=== PATIENT | female | born 1980 | race Caucasian/White ===

== ENCOUNTER 2017-06-09 09:17 | Inpatient (IN) | payer BC ==
--- NOTE | 2017-06-09 09:37 | C.PDOC ---
History Of Present Illness 37 y/o female presents to ED sent by Dr. Kinsey for pre-op labs and admission. Patient is schedules for operative wash out today for possible ulcer developed in September. Patient denies fever, chills, nausea, weakness or any other complaints at this time. Time Seen by Provider: 06/09/17 09:36 Chief Complaint (Nursing): Lower Extremity Problem/Injury History Per: Patient History/Exam Limitations: no limitations Onset/Duration Of Symptoms: Days Current Symptoms Are (Timing): Still Present Past Medical History Reviewed: Historical Data, Nursing Documentation, Vital Signs Vital Signs: Last Vital Signs Temp 98.6 F 06/09/17 13:54 Pulse 61 06/09/17 13:54 Resp 20 06/09/17 13:54 BP 112/76 06/09/17 13:54 Pulse Ox 100 06/09/17 13:54 Surgical History: No Surg Hx Family History: States: No Known Family Hx - Social History Hx Alcohol Use: No Hx Substance Use: No - Immunization History Hx Tetanus Toxoid Vaccination: No Hx Influenza Vaccination: No Hx Pneumococcal Vaccination: No Review Of Systems Constitutional: Negative for: Fever, Chills Skin: Positive for: Rash, Other (Ulcer to right leg). Negative for: Bruising Neurological: Negative for: Weakness, Numbness Physical Exam - Physical Exam Appears: Non-toxic, No Acute Distress Skin: Warm, Dry, Other (hyperpigmented macular rash diffusely to chest, back and legs. Non blanching, non tender. Anular distinct Lesions) Head: Normacephalic Oral Mucosa: Moist Neck: Normal ROM, Supple Chest: Symmetrical Cardiovascular: Rhythm Regular Respiratory: Normal Breath Sounds, No Rales, No Rhonchi, No Wheezing Gastrointestinal/Abdominal: Soft, No Tenderness, No Guarding, No Rebound Extremity: Capillary Refill (<2 seconds), No Deformity, Other (Superficial venous stasis Ulcer to medial aspect of right lower extremity. Non tender, No flunctuance) Pulses: Left Dorsalis Pedis: Normal, Right Dorsalis Pedis: Normal Neurological/Psych: Oriented x3, Normal Motor, Normal Sensation ED Course And Treatment - Laboratory Results Result Diagrams: 06/09/17 10:09 06/09/17 10:09 ECG: Interpreted By Me ECG Rhythm: Sinus Rhythm ECG Interpretation: Normal, No Acute Changes Interpretation Of ECG: nsr,rate 60bpm,intervals wnl,no ectopy,no acute st changes O2 Sat by Pulse Oximetry: 98 (RA) Pulse Ox Interpretation: Normal Medical Decision Making Medical Decision Making: Plan:blood work, UA, ECG, Doppler Progress: Discussed with Dr. Kinsey for further plan Dr. Solis contacted Venous Duplex- Negative No findings Disposition - Disposition Disposition: HOSPITALIZED Disposition Time: 14:34 Condition: GOOD - Clinical Impression Clinical Impression: Stasis leg ulcer - Scribe Statement The provider has reviewed the documentation as recorded by the Scribsara Johnson All medical record entries made by the Bereibe were at my direction and personally dictated by me. I have reviewed the chart and agree that the record accurately reflects my personal performance of the history, physical exam, medical decision making, and the department course for this patient. I have also personally directed, reviewed, and agree with the discharge instructions and disposition. Decision To Admit - InPatient: Physician Admission Certification: I certify that this patient requires 2 or more midnights of care for the following reason:: infected leg ulcers - . Bed Request Type: Regular Admitting Physician: Frank Kinsey Patient Diagnosis: Stasis leg ulcer
[2017-06-09] MEDS ORDERED: Sodium Chloride 0.9% 1,000 ML IV ONE ×2 (09:51→19:30)
[2017-06-09 10:12] LABS: BASO # 0.1 K/uL (0.0-0.2); BASO % 1.2 % (0.0-2.0); EOS # 0.2 K/uL (0.0-0.7); EOS % 2.4 % (0.0-4.0); HEMATOCRIT 37.7 % (34.0-47.0); LYMPH # 1.3 K/uL (1.0-4.3); LYMPH % 20.3 % (20.0-40.0); MEAN CELL VOLUME 84.1 fL (81.0-99.0); MEAN CORPUSCULAR HEMOGLOBIN 28.9 pg (27.0-31.0); MEAN CORPUSCULAR HGB CONC 34.3 g/dL (33.0-37.0); MEAN PLATELET VOLUME 9.3 fL (7.2-11.7); MONO # 0.6 K/uL (0.0-0.8); MONO % 9.3 % (0.0-10.0); NRBC % 0.1 % (0.0-2.0); RED CELL DISTRIBUTION WIDTH 12.5 % (11.5-14.5); WHITE BLOOD COUNT 6.6 K/uL (4.8-10.8)
[2017-06-09] MEDS ORDERED: ceFAZolin 1 gm FROZEN Premix 1 GM/50 ML ML IVPB ONE (10:15)
[2017-06-09] MEDS ORDERED: Sodium Chloride 0.9% 1,000 ML ONE (10:15)
[2017-06-09 10:24] LABS: CHLORIDE 100 mmol/L (98-107)
[2017-06-09 10:25] LABS: POTASSIUM 3.8 mmol/L (3.6-5.2); SODIUM 135 mmol/L (132-148)
[2017-06-09 10:28] LABS: ALB/GLOB RATIO 1.2 (1.0-2.1); ALKALINE PHOSPHATASE 59 U/L (38-126); ALT/SGPT 18 U/L (9-52); AST/SGOT 16 U/L (14-36); BILIRUBIN,TOTAL 0.7 mg/dL (0.2-1.3); BLOOD UREA NITROGEN 10 mg/dL (7-17); CALCIUM 7.9 mg/dl (8.6-10.4); CARBON DIOXIDE 24 mmol/L (22-30); GFR AFRICAN-AMERICAN > 60; GLUCOSE,RANDOM 74 mg/dL (65-105); TOTAL PROTEIN 7.5 g/dL (6.3-8.3)
[2017-06-09 10:42] LABS: RBC URINE 3 /hpf (0-3); URINE BILIRUBIN NEGATIVE (NEGATIVE); URINE BLOOD NEGATIVE (NEGATIVE); URINE COLOR Yellow (YELLOW); URINE GLUCOSE (UA) NORMAL (Normal); URINE KETONE NEGATIVE (NEGATIVE); URINE LEUKOCYTE ESTERASE NEG Leu/uL (Negative); URINE PROTEIN NEGATIVE (NEGATIVE); URINE UROBILINOGEN NORMAL mg/dL (0.2-1.0); WBC URINE 1 /hpf (0-5)
[2017-06-09] MEDS ORDERED: Lactated Ringer's 1,000 ML IV ONE (15:35)
[2017-06-09] MEDS ORDERED: Midazolam 2 MG/2 ML VIAL ONE (15:40)
[2017-06-09] MEDS ORDERED: Propofol 10 mg/ml Inj (20 ML) ONE (15:41)
[2017-06-09] MEDS ORDERED: ceFAZolin IV 1 gm in Dextrose 1 GM/50 ML BAG IVPB ONE (15:47)
[2017-06-09] MEDS ORDERED: Bupivacaine HCl 0.25% PF (10 ml) Inj ONE (15:48)
[2017-06-09] MEDS ORDERED: Bacitracin Ointment 30 GM TUBE ONE (15:58)
[2017-06-09] MEDS ORDERED: Oxycodone/Acetaminophen 5/325 mg Tab PO PRN (16:20)
--- NOTE | 2017-06-09 17:16 | CP.PCM.CON ---
History of Present Illness - History of Present Illness History of Present Illness: 37 y/o female presents to ED sent by Dr. Kinsey for pre-op labs and admission. Patient is schedules for operative wash out today for possible ulcer developed in September. Review of Systems - Review of Systems All systems: reviewed and no additional remarkable complaints except - Constitutional Constitutional: absent: As Per HPI, Anorexia, Chills, Daytime Sleepiness, Excessive Sweating, Fatigue, Fever, Frequent Falls, Headache, Increased Appetite , Lethargy, Malaise, Night Sweats, Snoring, Sleep Apnea, Weight Gain, Weight Loss, Weakness, Other - EENT Eyes: absent: As Per HPI, Blind Spots, Blurred Vision, Change in Vision, Decreased Night Vision, Diplopia, Discharge, Dry Eye, Exophthalmos, Floaters, Irritation, Itchy Eyes, Loss of Peripheral Vision, Pain, Photophobia, Requires Corrective Lenses, Sees Flashes, Spots in Vision, Tunnel Vision, Other Visual Disturbances, Loss of Vision, Other Nose/Mouth/Throat: absent: As Per HPI, Epistaxis, Nasal Congestion, Nasal Discharge, Nasal Obstruction, Nasal Trauma, Nose Pain, Post Nasal Drip, Sinus Pain, Sinus Pressure, Bleeding Gums, Change in Voice, Dental Pain, Dry Mouth, Dysphagia, Halitosis, Hoarsness, Lip Swelling, Mouth Lesions, Mouth Pain, Odynophagia, Sore Throat, Throat Swelling, Tongue Swelling, Facial Pain, Neck Pain, Neck Mass, Other - Breasts Breasts: absent: As Per HPI, Change in Shape, Mass, Pain, Nipple Discharge, Nipple Inversion, Skin Changes, Swelling, Other - Cardiovascular Cardiovascular: absent: As Per HPI, Acrocyanosis, Chest Pain, Chest Pain at Rest , Chest Pain with Activity, Claudication, Diaphoresis, Dyspnea, Dyspnea on Exertion, Edema, Irregular Heart Rhythm, Pain Radiating to Arm/Neck/Jaw, Leg Edema, Leg Ulcers, Lightheadedness, Orthopnea, Palpitations, Paroxysmal Nocturnal Dyspnea, Pedal Edema, Radiating Pain, Rapid Heart Rate, Slow Heart Rate, Syncope, Other - Respiratory Respiratory: absent: As Per HPI, Cough, Dyspnea, Hemoptysis, Dyspnea on Exertion , Wheezing, Snoring, Stridor, Pain on Inspiration, Chest Congestion, Excessive Mucous Production, Change in Mucous Color, Pain with Coughing, Other - Gastrointestinal Gastrointestinal: absent: As Per HPI, Abdominal Pain, Belching, Bloating, Change in Bowel Habits, Change in Stool Character, Coffee Ground Emesis, Constipation, Cramping, Diarrhea, Dyspepsia, Dysphagia, Early Satiety, Excessive Flatus, Fecal Incontinence, Heartburn, Hematemesis, Hematochezia, Loose Stools, Melena, Nausea, Odynophagia, Temesmus, Vomiting, Other - Genitourinary Genitourinary: absent: As Per HPI, Change in Urinary Stream, Difficulty Urinating, Dysuria, Flank Pain, Hematuria, Pyuria, Nocturia, Urinary Incontinence, Urinary Frequency, Urinary Hesitance, Urinary Urgency, Voiding Freq/Small Amts, Freq UTI, Hx Renal/Bladder Calculi, Hx /Renal Surgery, Bladder Distension, Other - Reproductive: Female Reproductive:Female: absent: As Per HPI, Amenorrhea, Amenorrhea/ Control, Currently Menstual, Cycle <21 Days, Cycle >35 Days, Cycle Variable, Menses 1-7 Days, Menses >/= 8 Days, Menses Variable, Cycle > 4 Weeks Between, No Menses for 6 Months, Heavy Menses, Light Menses, Normal Menses, Spotting Between Cycles , S/P Hysterectomy, Menopausal, Post Menopausal, Premenarche, Abnormal Vaginal Bleeding, Dysmenorrhea, Dyspareunia, Genital Lesions, Genital Pruritis, Pelvic Pain, Prolapse Symptoms, Sexual Dysfunction, Vaginal Discharge, Vaginal Dryness , Vaginal Odor, Vaginal Pruritis, Other - Menstruation Menstruation: absent: As Per HPI, Amenorrhea, Amenorrhea/ Control, Currently Menstual, Cycle <21 Days, Cycle >35 Days, Cycle Variable, Menses 1-7 Days, Menses >/= 8 Days, Menses Variable, Cycle > 4 Weeks Between, No Menses for 6 Months, Heavy Menses, Light Menses, Normal Menses, Spotting Between Cycles , S/P Hysterectomy, Menopausal, Post Menopausal, Premenarche, Abnormal Vaginal Bleeding, Dysmenorrhea, Other - Musculoskeletal Musculoskeletal: As Per HPI - Integumentary Integumentary: As Per HPI, Dry Skin, Skin Pain, Wounds - Neurological Neurological: absent: As Per HPI, Abnormal Gait, Abnormal Hearing, Abnormal Movements, Abnormal Speech, Behavioral Changes, Burning Sensations, Confusion, Convulsions, Disequilibrium, Dizziness, Numbness, Focal Weakness, Frequent Falls , Headaches, Lack of Coordination, Loss of Vision, Memory Loss, Paresthesias, Radicular Pain, Restless Legs, Sensory Deficit, Syncope, Tingling, Tremor, Vertigo, Weakness, Other Visual Disturbances, Other - Psychiatric Psychiatric: absent: As Per HPI, Abnormal Sleep Pattern, Anhedonia, Anxiety, Auditory Hallucinations, Behavioral Changes, Change in Appetite, Change in Libido, Confusion, Depression, Difficulty Concentrating, Hallucinations, Homicidal Ideation, Hopelessness, Irritability, Memory Loss, Mood Swings, Panic Attacks, Paranoia, Suicidal Ideation, Visual Hallucinations, Tactile Hallucinations, Other Past Patient History - Past Social History Smoking Status: Never Smoked - PSYCHIATRIC Hx Substance Use: No - SURGICAL HISTORY Hx Surgeries: No - ANESTHESIA Hx Anesthesia: No Meds Allergies/Adverse Reactions: Allergies Allergy/AdvReac Type Severity Reaction Status Date / Time omeprazole Allergy Severe RASH Verified 06/09/17 09:51 - Medications Medications: Current Medications Docusate Sodium (Colace) 100 mg PO BID [facility] Enoxaparin Sodium (Lovenox) 30 mg SC 1000,2200 [facility] Sodium Chloride (Sodium Chloride 0.9%) 1,000 mls @ 100 mls/hr IV .Q10H ONE Stop: 06/09/17 19:50 Last Admin: 06/09/17 10:18 Dose: 100 mls/hr Cefazolin Sodium/Dextrose (Ancef Iv 1 Gm Duplex) 1 gm in 50 mls @ 100 mls/hr IVPB Q8H [facility] Morphine Sulfate (Morphine) 1 mg IVP Q10M PRN PRN Reason: Pain, severe (8-10) Stop: 06/09/17 18:20 Ondansetron HCl (Zofran Inj) 4 mg IVP Q6 PRN PRN Reason: Nausea/Vomiting Oxycodone/Acetaminophen (Percocet 5/325 Mg Tab) 1 tab PO Q4H PRN PRN Reason: pain Stop: 06/12/17 16:21 Physical Exam - Constitutional Appears: Non-toxic, Chronically Ill - Head Exam Head Exam: NORMOCEPHALIC - Eye Exam Eye Exam: PERRL - ENT Exam ENT Exam: Mucous Membranes Dry - Neck Exam Neck exam: Negative for: Lymphadenopathy - Respiratory Exam Respiratory Exam: Decreased Breath Sounds - Cardiovascular Exam Cardiovascular Exam: REGULAR RHYTHM - GI/Abdominal Exam GI & Abdominal Exam: Diminished Bowel Sounds, Soft. absent: Tenderness - Rectal Exam Rectal Exam: Deferred - Exam Exam: NORMAL INSPECTION - Extremities Exam Extremities exam: Positive for: tenderness, pedal pulses present. Negative for : pedal edema - Back Exam Back exam: absent: CVA tenderness (L), CVA tenderness (R) - Neurological Exam Neurological exam: Alert, CN II-XII Intact, Oriented x3, Reflexes Normal - Psychiatric Exam Psychiatric exam: Normal Mood - Skin Skin Exam: Dry Results - Vital Signs Recent Vital Signs: Last Vital Signs Temp 98.2 F 06/09/17 15:03 Pulse 81 06/09/17 16:45 Resp 13 06/09/17 16:45 BP 120/80 06/09/17 16:45 Pulse Ox 100 06/09/17 16:45 - Labs Result Diagrams: 06/09/17 10:09 06/09/17 10:09 Labs: Laboratory Results - last 24 hr 06/09/17 06/09/17 06/09/17 10:09 10:09 10:09 WBC 6.6 RBC 4.49 Hgb 12.9 Hct 37.7 MCV 84.1 MCH 28.9 MCHC 34.3 RDW 12.5 Plt Count 236 MPV 9.3 Neut % (Auto) 66.8 Lymph % (Auto) 20.3 [place] % (Auto) 9.3 Eos % (Auto) 2.4 Baso % (Auto) 1.2 Neut # 4.4 Lymph # 1.3 [place] # 0.6 Eos # 0.2 Baso # 0.1 PT 11.1 INR 1.0 APTT 33 Sodium 135 Potassium 3.8 Chloride 100 Carbon Dioxide 24 Anion Gap 15 BUN 10 Creatinine 0.5 L Est GFR ( Amer) > 60 Est GFR (Non-Af Amer) > 60 Random Glucose 74 Calcium 7.9 L Total Bilirubin 0.7 AST 16 ALT 18 Alkaline Phosphatase 59 Total Protein 7.5 Albumin 4.1 Globulin 3.3 Albumin/Globulin Ratio 1.2 Urine Color Urine Clarity Urine pH Ur Specific [place] Urine Protein Urine Glucose (UA) Urine Ketones Urine Blood Urine Nitrate Urine Bilirubin Urine Urobilinogen Ur Leukocyte Esterase Urine WBC (Auto) Urine RBC (Auto) Ur Squamous Epith Cells Urine HCG, Qual 06/09/17 10:23 WBC RBC Hgb Hct MCV MCH MCHC RDW Plt Count MPV Neut % (Auto) Lymph % (Auto) [place] % (Auto) Eos % (Auto) Baso % (Auto) Neut # Lymph # [place] # Eos # Baso # PT INR APTT Sodium Potassium Chloride Carbon Dioxide Anion Gap BUN Creatinine Est GFR ( Amer) Est GFR (Non-Af Amer) Random Glucose Calcium Total Bilirubin AST ALT Alkaline Phosphatase Total Protein Albumin Globulin Albumin/Globulin Ratio Urine Color Yellow Urine Clarity Clear Urine pH 5.0 Ur Specific [place] 1.023 Urine Protein Negative Urine Glucose (UA) Normal Urine Ketones Negative Urine Blood Negative Urine Nitrate Negative Urine Bilirubin Negative Urine Urobilinogen Normal Ur Leukocyte Esterase Neg Urine WBC (Auto) 1 Urine RBC (Auto) 3 Ur Squamous Epith Cells 7 H Urine HCG, Qual Negative Assessment & Plan (1) Stasis leg ulcer Status: Acute - Assessment and Plan (Free Text) Assessment: cont iv ancef for or
[2017-06-09] MEDS: Enoxaparin 30 mg Syringe SC SCH (22:30)
[2017-06-09] MEDS: ceFAZolin IV 1 gm in Dextrose 1 GM/50 ML BAG IVPB SCH (23:07)
--- NOTE | 2017-06-09 23:27 | CP.PCM.HP ---
History of Present Illness - History of Present Illness History of Present Illness: History Of Present Illness CC: Left Lower Extremity Problem/Injury/ulcer 37 y/o female with no h/o DM, HTn N presents to ED with non healing ulcers and is for surgical debribement sent by Dr. Kinsey for pre-op labs and admission. Patient is schedules for operative wash out today for possible ulcer developed in September. Patient denies fever, chills, nausea, weakness or any other complaints at this time.Pt is eating in her bed, family at bedside, denies any pain, discomfort Physical Exam - Physical Exam Appears: Non-toxic, No Acute Distress Skin: Warm, Dry, pale, Other (hyperpigmented macular purplish rash diffusely to chest, back and legs. Non blanching, non tender. Anular distinct Lesions) Head: Normacephalic Oral Mucosa: Moist Neck: Normal ROM, Supple, no JVD Chest: Symmetrical Cardiovascular: Rhythm Regular Respiratory: Normal Breath Sounds, No Rales, No Rhonchi, No Wheezing Gastrointestinal/Abdominal: Soft, No Tenderness, No Guarding, No Rebound Extremity: Capillary Refill (<2 seconds), No Deformity, Other (Superficial venous stasis Ulcer to medial aspect of right lower extremity. Non tender, No flunctuance) Pulses: Left Dorsalis Pedis: Normal, Right Dorsalis Pedis: Normal Neurological/Psych: Oriented x3, Normal Motor, Normal Sensation Past Patient History - Past Social History Smoking Status: Never Smoked - PSYCHIATRIC Hx Substance Use: No - SURGICAL HISTORY Hx Surgeries: No - ANESTHESIA Hx Anesthesia: No Meds Allergies/Adverse Reactions: Allergies Allergy/AdvReac Type Severity Reaction Status Date / Time omeprazole Allergy Severe RASH Verified 06/09/17 09:51 Physical Exam - Constitutional Appears: No Acute Distress - Head Exam Head Exam: ATRAUMATIC, NORMAL INSPECTION, NORMOCEPHALIC - Eye Exam Eye Exam: EOMI, Normal appearance, PERRL Pupil Exam: NORMAL ACCOMODATION, PERRL - Cardiovascular Exam Cardiovascular Exam: REGULAR RHYTHM - GI/Abdominal Exam GI & Abdominal Exam: Normal Bowel Sounds, Soft. absent: Tenderness Results - Vital Signs Recent Vital Signs: Last Vital Signs Temp 98.3 F 06/09/17 21:33 Pulse 68 06/09/17 21:33 Resp 20 06/09/17 21:33 BP 95/67 L 06/09/17 21:33 Pulse Ox 99 06/09/17 21:33 - Labs Result Diagrams: 06/09/17 10:09 06/09/17 10:09 Labs: Laboratory Results - last 24 hr 06/09/17 06/09/17 06/09/17 10:09 10:09 10:09 WBC 6.6 RBC 4.49 Hgb 12.9 Hct 37.7 MCV 84.1 MCH 28.9 MCHC 34.3 RDW 12.5 Plt Count 236 MPV 9.3 Neut % (Auto) 66.8 Lymph % (Auto) 20.3 [place] % (Auto) 9.3 Eos % (Auto) 2.4 Baso % (Auto) 1.2 Neut # 4.4 Lymph # 1.3 [place] # 0.6 Eos # 0.2 Baso # 0.1 PT 11.1 INR 1.0 APTT 33 Sodium 135 Potassium 3.8 Chloride 100 Carbon Dioxide 24 Anion Gap 15 BUN 10 Creatinine 0.5 L Est GFR ( Amer) > 60 Est GFR (Non-Af Amer) > 60 Random Glucose 74 Calcium 7.9 L Total Bilirubin 0.7 AST 16 ALT 18 Alkaline Phosphatase 59 Total Protein 7.5 Albumin 4.1 Globulin 3.3 Albumin/Globulin Ratio 1.2 Urine Color Urine Clarity Urine pH Ur Specific [place] Urine Protein Urine Glucose (UA) Urine Ketones Urine Blood Urine Nitrate Urine Bilirubin Urine Urobilinogen Ur Leukocyte Esterase Urine WBC (Auto) Urine RBC (Auto) Ur Squamous Epith Cells Urine HCG, Qual 06/09/17 10:23 WBC RBC Hgb Hct MCV MCH MCHC RDW Plt Count MPV Neut % (Auto) Lymph % (Auto) [place] % (Auto) Eos % (Auto) Baso % (Auto) Neut # Lymph # [place] # Eos # Baso # PT INR APTT Sodium Potassium Chloride Carbon Dioxide Anion Gap BUN Creatinine Est GFR ( Amer) Est GFR (Non-Af Amer) Random Glucose Calcium Total Bilirubin AST ALT Alkaline Phosphatase Total Protein Albumin Globulin Albumin/Globulin Ratio Urine Color Yellow Urine Clarity Clear Urine pH 5.0 Ur Specific [place] 1.023 Urine Protein Negative Urine Glucose (UA) Normal Urine Ketones Negative Urine Blood Negative Urine Nitrate Negative Urine Bilirubin Negative Urine Urobilinogen Normal Ur Leukocyte Esterase Neg Urine WBC (Auto) 1 Urine RBC (Auto) 3 Ur Squamous Epith Cells 7 H Urine HCG, Qual Negative Assessment & Plan (1) Stasis leg ulcer Assessment and Plan: continue post op care ID follow up Status: Acute (2) Animal bite wound Status: Acute
[2017-06-10] MEDS: ceFAZolin IV 1 gm in Dextrose 1 GM/50 ML BAG IVPB SCH ×3 (02:34→18:14)
--- NOTE | 2017-06-10 08:34 | OP ---
PROCEDURE DATE: 06/09/2017 PREOPERATIVE DIAGNOSIS: Extensive right ankle abscess with cellulitis. POSTOPERATIVE DIAGNOSIS: Extensive right ankle abscess with cellulitis. PROCEDURES PERFORMED: 1. Excision and drainage of right ankle abscess (17099). 2. Repair of perforating vein (49281). 3. Partial with adjacent tissue transfer closure of 10 cm2 (81995). SURGEON: Frank Kinsey MD TYPE OF ANESTHESIA: General. ESTIMATED BLOOD LOSS: 50 mL. POSTOPERATIVE CONDITION: Stable. INDICATION FOR SURGERY: This is a 37-year-old female with a longstanding infection in her right ankle secondary to venostasis disease, skin changes, and infection. She was seen in my office yesterday, found to have an abscess in the ankle and was admitted to the emergency room today for urgent drainage and debridement. DESCRIPTION OF PROCEDURE: The patient was taken to the operating room, general anesthesia was administered and the right leg and foot were prepped and draped. An incision was made into the ankle abscess and pus was drained and cultured. It was then extensively debrided. A bleeding and perforated vein was noted and after gaining control of it, it was repaired with a 7-0 Prolene suture. After this control of the bleeding, the wound was pulse irrigated with copious amounts of saline solution. A partial tissue transfer closure was performed at the periphery by widely mobilizing and using advancement flap method for approximately 10 cm2 and the rest of the wound was packed open with wet saline gauze. The patient tolerated the procedure well and returned to the recovery room in stable condition. Frank Kinsey MD
[2017-06-10] MEDS: Enoxaparin 30 mg Syringe SC SCH ×3 (09:22→22:29)
--- NOTE | 2017-06-10 18:21 | CARD ---
APPROVED REPORT EKG Measurement Heart [id number] <Conclusion> Normal sinus rhythm Low voltage QRS Borderline ECG
--- NOTE | 2017-06-10 19:15 | CP.PCM.PN ---
Subjective - Date & Time of Evaluation Date of Evaluation: 06/10/17 Time of Evaluation: 10:00 - Subjective Subjective: no fever alert awake Objective - Vital Signs/Intake and Output Vital Signs (last 24 hours): Temp Pulse Resp BP Pulse Ox 97.6 F 63 20 107/71 96 06/10/17 16:00 06/10/17 16:00 06/10/17 16:00 06/10/17 16:00 06/10/17 16:00 Intake and Output: 06/10/17 06/11/17 18:59 06:59 Intake Total 260 Balance 260 - Medications Medications: Current Medications Docusate Sodium (Colace) 100 mg PO BID [facility] Last Admin: 06/10/17 17:36 Dose: 100 mg Enoxaparin Sodium (Lovenox) 30 mg SC 1000,2200 [facility] Last Admin: 06/10/17 11:31 Dose: 30 mg Cefazolin Sodium/Dextrose (Ancef Iv 1 Gm Duplex) 1 gm in 50 mls @ 100 mls/hr IVPB Q8H [facility] Last Admin: 06/10/17 18:14 Dose: 100 mls/hr Ondansetron HCl (Zofran Inj) 4 mg IVP Q6 PRN PRN Reason: Nausea/Vomiting Oxycodone/Acetaminophen (Percocet 5/325 Mg Tab) 1 tab PO Q4H PRN PRN Reason: pain Stop: 06/12/17 16:21 - Labs Labs: 06/09/17 10:09 06/09/17 10:09 PT 11.1 SECONDS (9.7-12.2) 06/09/17 10:09 INR 1.0 06/09/17 10:09 APTT 33 SECONDS (21-34) 06/09/17 10:09 - Constitutional Appears: Non-toxic, Chronically Ill - Head Exam Head Exam: NORMOCEPHALIC - Eye Exam Eye Exam: PERRL - ENT Exam ENT Exam: Mucous Membranes Dry - Neck Exam Neck Exam: absent: Lymphadenopathy - Respiratory Exam Respiratory Exam: Decreased Breath Sounds - Cardiovascular Exam Cardiovascular Exam: REGULAR RHYTHM - GI/Abdominal Exam GI & Abdominal Exam: Distended, Soft - Rectal Exam Rectal Exam: Deferred - Exam Exam: NORMAL INSPECTION - Extremities Exam Extremities Exam: absent: Pedal Edema - Back Exam Back Exam: absent: CVA tenderness (L), CVA tenderness (R) - Neurological Exam Neurological Exam: Alert, Awake, Oriented x3 - Psychiatric Exam Psychiatric exam: Normal Mood - Skin Skin Exam: Dry Assessment and Plan (1) Stasis leg ulcer Status: Acute - Assessment and Plan (Free Text) Plan: for i and d in am
--- NOTE | 2017-06-10 23:32 | CP.PCM.CON ---
History of Present Illness - History of Present Illness History of Present Illness: CC: Left Lower Extremity Problem/Injury/ulcer HPI: 37 y/o [place] female with no h/o DM, HTn N presents to ED with non healing ulcers and is for surgical debribement sent by Dr. Kinsey for pre-op labs and admission. Patient is schedules for operative wash out today for possible ulcer developed in September. Patient denies fever, chills, nausea, weakness or any other complaints at this time.Pt is eating in her bed, family at bedside, denies any pain, discomfort Physical Exam - Physical Exam Appears: Non-toxic, No Acute Distress Skin: Warm, Dry, pale, Other (hyperpigmented macular purplish rash diffusely to chest, back and legs. Non blanching, non tender. Anular distinct Lesions) Head: Normacephalic Oral Mucosa: Moist Neck: Normal ROM, Supple, no JVD Chest: Symmetrical Cardiovascular: Rhythm Regular Respiratory: Normal Breath Sounds, No Rales, No Rhonchi, No Wheezing Gastrointestinal/Abdominal: Soft, No Tenderness, No Guarding, No Rebound Extremity: Capillary Refill (<2 seconds), No Deformity, Other (Superficial venous stasis Ulcer to medial aspect of right lower extremity. Non tender, No flunctuance) Pulses: Left Dorsalis Pedis: Normal, Right Dorsalis Pedis: Normal Neurological/Psych: Oriented x3, Normal Motor, Normal Sensation Past Patient History - Past Medical History & Family History Past Medical History?: No - Past Social History Smoking Status: Never Smoked - MUSCULOSKELETAL/RHEUMATOLOGICAL Hx Falls: No - PSYCHIATRIC Hx Substance Use: No - SURGICAL HISTORY Hx Surgeries: No - ANESTHESIA Hx Anesthesia: No Meds Allergies/Adverse Reactions: Allergies Allergy/AdvReac Type Severity Reaction Status Date / Time omeprazole Allergy Severe RASH Verified 06/09/17 09:51 - Medications Medications: Current Medications Docusate Sodium (Colace) 100 mg PO BID [facility] Last Admin: 06/10/17 17:36 Dose: 100 mg Enoxaparin Sodium (Lovenox) 30 mg SC 1000,2200 [facility] Last Admin: 06/10/17 22:29 Dose: 30 mg Cefazolin Sodium/Dextrose (Ancef Iv 1 Gm Duplex) 1 gm in 50 mls @ 100 mls/hr IVPB Q8H [facility] Last Admin: 06/10/17 18:14 Dose: 100 mls/hr Ondansetron HCl (Zofran Inj) 4 mg IVP Q6 PRN PRN Reason: Nausea/Vomiting Oxycodone/Acetaminophen (Percocet 5/325 Mg Tab) 1 tab PO Q4H PRN PRN Reason: pain Stop: 06/12/17 16:21 Physical Exam - Constitutional Appears: Well, No Acute Distress Results - Vital Signs Recent Vital Signs: Last Vital Signs Temp 97.6 F 06/10/17 16:00 Pulse 63 06/10/17 16:00 Resp 20 06/10/17 16:00 BP 107/71 06/10/17 16:00 Pulse Ox 96 06/10/17 16:00 - Labs Result Diagrams: 06/09/17 10:09 06/09/17 10:09 Labs: Laboratory Results - last 24 hr 06/10/17 07:12 Urine HCG, Qual Negative Assessment & Plan (1) Stasis leg ulcer Assessment and Plan: ID follow up on antibiotics wound care Status: Acute (2) Animal bite wound Status: Acute
[2017-06-11] MEDS: ceFAZolin IV 1 gm in Dextrose 1 GM/50 ML BAG IVPB SCH ×3 (03:09→18:59)
[2017-06-11 08:06] VITALS: O2SAT 100
[2017-06-11] MEDS: Enoxaparin 30 mg Syringe SC SCH (09:25)
[2017-06-11] MEDS ORDERED: Lactated Ringer's 1,000 ML IV ONE (14:04)
[2017-06-11] MEDS ORDERED: Midazolam 2 MG/2 ML VIAL ONE (14:06)
[2017-06-11] MEDS ORDERED: Propofol 10 mg/ml Inj (20 ML) ONE (14:07)
[2017-06-11] MEDS ORDERED: ceFAZolin IV 1 gm in Dextrose 0 GM/0 ML BAG IVPB ONE (14:13)
[2017-06-11] MEDS ORDERED: Bupivacaine 0.5% Inj(30mL) ONE (14:13)
[2017-06-11] MEDS ORDERED: HYDROmorphone 0.5 mg/0.5 ml ISec IVP PRN (14:31)
--- NOTE | 2017-06-11 14:31 | VASCLAB ---
PROCEDURE: Lower Extremity Venous Duplex Exam. HISTORY: Pain in limb, right ankle wound PRIORS: No previous vascular exam. TECHNIQUE: Bilateral common femoral, femoral, popliteal and posterior tibial, peroneal and great saphenous veins were evaluated. Flow was assessed with color Doppler, compressibility, assessment of phasic flow and augmentation response. Report prepared by LOKESH Kruger FINDINGS: RIGHT: 1. Common Femoral Vein: 1.1. Compressibility - Fully compressible: Thrombus - None : Flow - Phasic: Augmentation -Normal: Reflux - None. 2. Femoral Vein: 2.1. Compressibility - Fully compressible: Thrombus - None : Flow - Phasic: Augmentation -Normal: Reflux - None. 3. Popliteal Vein: 3.1. Compressibility - Fully compressible: Thrombus - None : Flow - Phasic: Augmentation -Normal: Reflux - None. 4. Posterior Tibial Vein: 4.1. Compressibility - Fully compressible: Thrombus - None: Flow - Phasic: Augmentation -Normal: Reflux - None. 5. Peroneal Vein: 5.1. Compressibility - Fully compressible: Thrombus - None: Flow - Phasic: Augmentation -Normal: Reflux - None. 6. Great Saphenous Vein: 6.1. Compressibility - Fully compressible: Thrombus - None: Flow - Phasic: Augmentation - Normal: Reflux - None. LEFT: 1. Common Femoral Vein: 1.1. Compressibility - Fully compressible: Thrombus - None: Flow - Phasic: Augmentation -Normal: Reflux - None. 2. Femoral Vein: 2.1. Compressibility - Fully compressible: Thrombus - None: Flow - Phasic: Augmentation -Normal: Reflux - None. 3. Popliteal Vein: 3.1. Compressibility - Fully compressible: Thrombus - None : Flow - Phasic: Augmentation -Normal: Reflux - None. 4. Posterior Tibial Vein: 4.1. Compressibility - Fully compressible: Thrombus - None: Flow - Phasic: Augmentation -Normal: Reflux - None. 5. Peroneal Vein: 5.1. Compressibility - Fully compressible: Thrombus - None: Flow - Phasic: Augmentation -Normal: Reflux - None. 6. Great Saphenous Vein: 6.1. Compressibility - Fully compressible: Thrombus - None: Flow - Phasic: Augmentation - Normal: Reflux - None. OTHER FINDINGS: Right: None significant. Left: None significant. IMPRESSION: Right: No evidence of deep or superficial vein thrombosis of the right lower extremity. Normal valve function noted of the right side. Left: No evidence of deep or superficial vein thrombosis of the left lower extremity. Normal valve function noted of the left side.
--- NOTE | 2017-06-11 15:02 | OP ---
PROCEDURE DATE: 06/11/2017 PREOPERATIVE DIAGNOSIS: Open wounds and ulcers of the right leg. POSTOPERATIVE DIAGNOSIS: Open wounds and ulcers of the right leg. PROCEDURE: Debridement and placement of skin grafts on open wounds and ulcers of the right leg. SURGEON: Frank Kinsey MD TYPE OF ANESTHESIA: General. ESTIMATED BLOOD LOSS: 20 mL POSTOPERATIVE CONDITION: Stable. DESCRIPTION OF PROCEDURE: The patient was taken to the operating room, general anesthesia was administered and the right leg and ankle were prepped and draped. The previous area, open area was pulse irrigated, debrided, bleeding was controlled using a Bovie, and exposed blood vessel was repaired and the wound was pulse irrigated again and cultured. The skin grafts were placed and tacked in place using a skin stapler. The wounds were dressed sterilely. The patient tolerated the procedure well and returned to recovery in stable condition. Frank Kinsey MD
--- NOTE | 2017-06-11 16:50 | CP.PCM.PN ---
Subjective - Date & Time of Evaluation Date of Evaluation: 06/11/17 Time of Evaluation: 09:00 - Subjective Subjective: wound growing mssa stable post op cont keflex and wound care Objective - Vital Signs/Intake and Output Vital Signs (last 24 hours): Temp Pulse Resp BP Pulse Ox 98.4 F 55 L 17 108/63 100 06/11/17 16:00 06/11/17 16:00 06/11/17 16:00 06/11/17 16:00 06/11/17 16:00 Intake and Output: 06/11/17 06/11/17 06:59 18:59 Intake Total 470 Balance 470 - Medications Medications: Current Medications Docusate Sodium (Colace) 100 mg PO BID [facility] Last Admin: 06/11/17 09:25 Dose: Not Given Enoxaparin Sodium (Lovenox) 30 mg SC 1000,2200 [facility] Last Admin: 06/11/17 09:25 Dose: Not Given Cefazolin Sodium/Dextrose (Ancef Iv 1 Gm Duplex) 1 gm in 50 mls @ 100 mls/hr IVPB Q8H [facility] Last Admin: 06/11/17 10:45 Dose: 100 mls/hr Ondansetron HCl (Zofran Inj) 4 mg IVP Q6 PRN PRN Reason: Nausea/Vomiting Oxycodone/Acetaminophen (Percocet 5/325 Mg Tab) 1 tab PO Q4H PRN PRN Reason: pain Stop: 06/12/17 16:21 - Labs Labs: 06/09/17 10:09 06/09/17 10:09 PT 11.1 SECONDS (9.7-12.2) 06/09/17 10:09 INR 1.0 06/09/17 10:09 APTT 33 SECONDS (21-34) 06/09/17 10:09 - Constitutional Appears: Non-toxic - Head Exam Head Exam: NORMOCEPHALIC - Eye Exam Eye Exam: PERRL - ENT Exam ENT Exam: Mucous Membranes Dry - Neck Exam Neck Exam: absent: Lymphadenopathy - Respiratory Exam Respiratory Exam: Decreased Breath Sounds - Cardiovascular Exam Cardiovascular Exam: REGULAR RHYTHM - GI/Abdominal Exam GI & Abdominal Exam: Distended, Soft - Rectal Exam Rectal Exam: Deferred - Exam Exam: NORMAL INSPECTION - Extremities Exam Extremities Exam: absent: Pedal Edema - Back Exam Back Exam: absent: CVA tenderness (L), CVA tenderness (R) - Neurological Exam Neurological Exam: Alert, Awake, Oriented x3 - Psychiatric Exam Psychiatric exam: Depressed - Skin Skin Exam: Dry Assessment and Plan (1) Stasis leg ulcer Status: Acute
[2017-06-11 16:54] VITALS: BP 112/73; PULSE 66; RESP 20; TEMP 98.3
--- NOTE | 2017-06-11 23:00 | CP.PCM.DIS ---
Provider - Provider Date of Admission: 06/09/17 10:46 Attending physician: Frank Kinsey MD Diagnosis - Discharge Diagnosis (1) Stasis leg ulcer Status: Acute (2) Animal bite wound Status: Acute Hospital Course - Lab Results Lab Results: Micro Results 06/09/17 16:25 Ankle - Right Gram Stain - Final 06/09/17 16:25 Ankle - Right Wound Culture - Preliminary No growth. 06/09/17 10:48 Leg - Right Gram Stain - Final 06/09/17 10:48 Leg - Right Wound Culture - Final Staphylococcus Aureus Most Recent Lab Values WBC 6.6 K/uL (4.8-10.8) 06/09/17 10:09 RBC 4.49 Mil/uL (3.80-5.20) 06/09/17 10:09 Hgb 12.9 g/dL (11.0-16.0) 06/09/17 10:09 Hct 37.7 % (34.0-47.0) 06/09/17 10:09 MCV 84.1 fL (81.0-99.0) 06/09/17 10:09 MCH 28.9 pg (27.0-31.0) 06/09/17 10:09 MCHC 34.3 g/dL (33.0-37.0) 06/09/17 10:09 RDW 12.5 % (11.5-14.5) 06/09/17 10:09 Plt Count 236 K/uL (130-400) 06/09/17 10:09 MPV 9.3 fL (7.2-11.7) 06/09/17 10:09 Neut % (Auto) 66.8 % (50.0-75.0) 06/09/17 10:09 Lymph % (Auto) 20.3 % (20.0-40.0) 06/09/17 10:09 [place] % (Auto) 9.3 % (0.0-10.0) 06/09/17 10:09 Eos % (Auto) 2.4 % (0.0-4.0) 06/09/17 10:09 Baso % (Auto) 1.2 % (0.0-2.0) 06/09/17 10:09 Neut # 4.4 K/uL (1.8-7.0) 06/09/17 10:09 Lymph # 1.3 K/uL (1.0-4.3) 06/09/17 10:09 [place] # 0.6 K/uL (0.0-0.8) 06/09/17 10:09 Eos # 0.2 K/uL (0.0-0.7) 06/09/17 10:09 Baso # 0.1 K/uL (0.0-0.2) 06/09/17 10:09 PT 11.1 SECONDS (9.7-12.2) 06/09/17 10:09 INR 1.0 06/09/17 10:09 APTT 33 SECONDS (21-34) 06/09/17 10:09 Sodium 135 mmol/L (132-148) 06/09/17 10:09 Potassium 3.8 mmol/L (3.6-5.2) 06/09/17 10:09 Chloride 100 mmol/L (98-107) 06/09/17 10:09 Carbon Dioxide 24 mmol/L (22-30) 06/09/17 10:09 Anion Gap 15 (10-20) 06/09/17 10:09 BUN 10 mg/dL (7-17) 06/09/17 10:09 Creatinine 0.5 mg/dL (0.7-1.2) L 06/09/17 10:09 Est GFR ( Amer) > 60 06/09/17 10:09 Est GFR (Non-Af Amer) > 60 06/09/17 10:09 Random Glucose 74 mg/dL (65-105) 06/09/17 10:09 Calcium 7.9 mg/dl (8.6-10.4) L 06/09/17 10:09 Total Bilirubin 0.7 mg/dL (0.2-1.3) 06/09/17 10:09 AST 16 U/L (14-36) 06/09/17 10:09 ALT 18 U/L (9-52) 06/09/17 10:09 Alkaline Phosphatase 59 U/L (38-126) 06/09/17 10:09 Total Protein 7.5 g/dL (6.3-8.3) 06/09/17 10:09 Albumin 4.1 g/dL (3.5-5.0) 06/09/17 10:09 Globulin 3.3 gm/dL (2.2-3.9) 06/09/17 10:09 Albumin/Globulin Ratio 1.2 (1.0-2.1) 06/09/17 10:09 Urine Color Yellow (YELLOW) 06/09/17 10:23 Urine Clarity Clear (Clear) 06/09/17 10:23 Urine pH 5.0 (5.0-8.0) 06/09/17 10:23 Ur Specific [place] 1.023 (1.003-1.030) 06/09/17 10:23 Urine Protein Negative mg/dL (NEGATIVE) 06/09/17 10:23 Urine Glucose (UA) Normal mg/dL (Normal) 06/09/17 10:23 Urine Ketones Negative mg/dL (NEGATIVE) 06/09/17 10:23 Urine Blood Negative (NEGATIVE) 06/09/17 10:23 Urine Nitrate Negative (NEGATIVE) 06/09/17 10:23 Urine Bilirubin Negative (NEGATIVE) 06/09/17 10:23 Urine Urobilinogen Normal mg/dL (0.2-1.0) 06/09/17 10:23 Ur Leukocyte Esterase Neg Saeid/uL (Negative) 06/09/17 10:23 Urine WBC (Auto) 1 /hpf (0-5) 06/09/17 10:23 Urine RBC (Auto) 3 /hpf (0-3) 06/09/17 10:23 Ur Squamous Epith Cells 7 /hpf (0-5) H 06/09/17 10:23 Urine HCG, Qual Negative (NEGATIVE) 06/11/17 09:09 - Hospital Course Hospital Course: wound growing mssa stable post op cont keflex and wound care discharge with outpateint follow up Discharge Exam - Head Exam Head Exam: NORMOCEPHALIC - Eye Exam Eye Exam: EOMI, Normal appearance, PERRL Pupil Exam: NORMAL ACCOMODATION, PERRL - Respiratory Exam Respiratory Exam: Clear to PA & Lateral - Cardiovascular Exam Cardiovascular Exam: +S1, +S2 - GI/Abdominal Exam GI & Abdominal Exam: Normal Bowel Sounds Discharge Plan - Follow Up Plan Condition: GOOD Disposition: HOME/ ROUTINE Instructions: Debridement (DC), Incision and Drainage (DC) Additional Instructions: SEE POST OPERATIVE INSTRUCTIONS Referrals: Frank Kinsey MD [Staff Provider] -
== END 2017-06-11 19:45 | disposition home or self-care (01) | DRG 574 ==
LOC: C.ER 09:17 → C.9E 10:46 → C.6T 20:17 → C.9E 20:18 → C.6T 20:55
PROVIDERS: ADMIT Surgery; ATTEND Surgery
PROC: 0J9Q0ZZ Drainage of Right Foot Subcutaneous Tissue and Fascia, Open Approach (ICD-10-PCS; principal; 2017-06-09 12:45)
PROC: 0HRMXK3 Replacement of Right Foot Skin with Nonautologous Tissue Substitute, Full Thickness, External Approach (ICD-10-PCS; 2017-06-11)
DX: L03.115 Cellulitis of right lower limb (principal); L97.919 Non-pressure chronic ulcer of unspecified part of right lower leg with unspecified severity; L02.415 Cutaneous abscess of right lower limb

== ENCOUNTER 2017-07-12 14:24 | Inpatient (IN) | payer BC ==
--- NOTE | 2017-07-12 15:58 | C.PDOC ---
History Of Present Illness 37 year old female presents to the ED c/o chronic right leg discoloration. Patient was recently admitted for stasis ulcer and seen by Dr. Heller who told her to come back to the ED for evaluation and possible admission to the OR. Patient denies numbness, weakness. Time Seen by Provider: 07/12/17 15:54 Chief Complaint (Nursing): Medical Clearance History Per: Patient History/Exam Limitations: no limitations Onset/Duration Of Symptoms: Days Current Symptoms Are (Timing): Still Present Reports Recently: Treated By A Physician (Dr. 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 (06/09/17) Family History: States: Unknown Family Hx - Social History Hx Alcohol Use: No Hx Substance Use: No - Immunization History Hx Tetanus Toxoid Vaccination: No Hx Influenza Vaccination: No Hx Pneumococcal Vaccination: No Review Of Systems Constitutional: Negative for: Fever, Chills Cardiovascular: Negative for: Chest Pain Respiratory: Negative for: Cough, Shortness of Breath Gastrointestinal: Negative for: Nausea, Vomiting, Abdominal Pain Musculoskeletal: Negative for: Leg Pain Neurological: Negative for: Weakness, Numbness Physical Exam - Physical Exam Appears: Non-toxic, No Acute Distress Skin: Other (Right ankle and lower leg dark discoloration) Head: Atraumatic, Normacephalic Oral Mucosa: Moist Neck: Normal ROM, Supple Chest: Symmetrical Cardiovascular: Rhythm Regular, No Murmur Respiratory: Normal Breath Sounds, No Accessory Muscle Use, No Rales, No Rhonchi , No Wheezing Gastrointestinal/Abdominal: Soft, No Tenderness Extremity: Normal ROM, Other (Right ankle and lower leg dark discoloration, mild scaling skin, mild erythema, no drainage) Pulses: Left Dorsalis Pedis: Decreased, Right Dorsalis Pedis: Decreased Neurological/Psych: Oriented x3, Normal Speech, Normal Cognition Gait: Steady ED Course And Treatment - Laboratory Results Result Diagrams: 07/12/17 16:31 07/12/17 16:31 O2 Sat by Pulse Oximetry: 99 (On RA) Pulse Ox Interpretation: Normal Progress Note: Plan: -Blood work, UA ordered. -IV fluids given. Patient was admitted under Dr. Heller for treatment and OR. Disposition - Disposition Disposition: HOSPITALIZED Disposition Time: 16:40 Condition: FAIR - Clinical Impression Clinical Impression: Stasis leg ulcer - PA / TECHNICAL SME / Resident Statement MD/DO has reviewed & agrees with the documentation as recorded. - Scribe Statement The provider has reviewed the documentation as recorded by the Scribe Walter Sparks All medical record entries made by the Scribe were at my direction and personally dictated by me. I have reviewed the chart and agree that the record accurately reflects my personal performance of the history, physical exam, medical decision making, and the department course for this patient. I have also personally directed, reviewed, and agree with the discharge instructions and disposition.
[2017-07-12] MEDS ORDERED: Sodium Chloride 0.9% 1,000 ML IV STA (16:03)
[2017-07-12] MEDS ORDERED: Sodium Chloride 0.9% 1,000 ML ONE (16:17)
[2017-07-12] MEDS ORDERED: Lactated Ringer's 1,000 ML IV ONE ×2 (16:37)
[2017-07-12 16:39] LABS: BASO # 0.1 K/uL (0.0-0.2); BASO % 0.9 % (0.0-2.0); EOS # 0.6 K/uL (0.0-0.7); EOS % 4.8 % (0.0-4.0); HEMATOCRIT 41.7 % (34.0-47.0); LYMPH # 1.5 K/uL (1.0-4.3); LYMPH % 11.3 % (20.0-40.0); MEAN CORPUSCULAR HEMOGLOBIN 27.3 pg (27.0-31.0); MEAN CORPUSCULAR HGB CONC 32.9 g/dL (33.0-37.0); MONO # 0.9 K/uL (0.0-0.8); MONO % 6.6 % (0.0-10.0); NRBC % 0.1 % (0.0-2.0); RED CELL DISTRIBUTION WIDTH 12.4 % (11.5-14.5); WHITE BLOOD COUNT 13.6 K/uL (4.8-10.8)
[2017-07-12 16:43] LABS: INR 1.1
[2017-07-12 16:44] LABS: CHLORIDE 98 mmol/L (98-107); POTASSIUM 3.7 mmol/L (3.6-5.2); SODIUM 135 mmol/L (132-148)
[2017-07-12 16:47] LABS: ALB/GLOB RATIO 1.4 (1.0-2.1); ALKALINE PHOSPHATASE 102 U/L (38-126); ALT/SGPT 25 U/L (9-52); AST/SGOT 18 U/L (14-36); BLOOD UREA NITROGEN 9 mg/dL (7-17); CARBON DIOXIDE 26 mmol/L (22-30); GFR AFRICAN-AMERICAN > 60; GLUCOSE,RANDOM 78 mg/dL (65-105); TOTAL PROTEIN 7.9 g/dL (6.3-8.3)
[2017-07-12 16:48] LABS: CALCIUM 8.8 mg/dl (8.6-10.4)
[2017-07-12 16:51] LABS: RBC URINE 2 /hpf (0-3); URINE BACTERIA FEW (<OCC); URINE BILIRUBIN NEGATIVE (NEGATIVE); URINE BLOOD NEGATIVE (NEGATIVE); URINE COLOR Yellow (YELLOW); URINE GLUCOSE (UA) NORMAL (Normal); URINE KETONE NEGATIVE (NEGATIVE); URINE LEUKOCYTE ESTERASE NEG Leu/uL (Negative); URINE PROTEIN NEGATIVE (NEGATIVE); URINE UROBILINOGEN NORMAL mg/dL (0.2-1.0); WBC URINE 3 /hpf (0-5)
[2017-07-12] MEDS ORDERED: Propofol 10 mg/ml Inj (20 ML) ONE (17:30)
[2017-07-12] MEDS ORDERED: Midazolam 2 MG/2 ML VIAL ONE (17:30)
[2017-07-12] MEDS ORDERED: ceFAZolin 1 gm FROZEN Premix 1 GM/50 ML ML IVPB ONE (17:31)
[2017-07-12] MEDS ORDERED: Bacitracin Ointment 30 GM TUBE ONE (17:49)
[2017-07-12] MEDS ORDERED: Oxycodone/Acetaminophen 5/325 mg Tab PO PRN (18:15)
[2017-07-12] MEDS ORDERED: HYDROmorphone 0.5 mg/0.5 ml ISec IVP PRN (18:16)
[2017-07-12] MEDS: Lactated Ringer's 1,000 ML IV SCH (18:30)
[2017-07-12] MEDS ORDERED: Sodium Chloride 0.9% 1,000 ML IV ONE (19:10)
--- NOTE | 2017-07-12 22:38 | CP.PCM.HP ---
History of Present Illness - History of Present Illness History of Present Illness: 37 year old female presents to the ED c/o chronic right leg discoloration. Patient was recently admitted for stasis ulcer and seen by Dr. Heller who told her to come back to the ED for evaluation and possible admission to the OR. Patient denies numbness, weakness. admitted for left leg open wound and is here for debribment Present on Admission - Present on Admission Any Indicators Present on Admission: Yes Past Patient History - Past Medical History & Family History Past Medical History?: No - Past Social History Smoking Status: Never Smoked - MUSCULOSKELETAL/RHEUMATOLOGICAL Hx Falls: No - PSYCHIATRIC Hx Substance Use: No - SURGICAL HISTORY Hx Surgeries: Yes Other/Comment: I&D for right lower leg cellulitis - ANESTHESIA Hx Anesthesia: Yes Hx Anesthesia Reactions: No Meds Allergies/Adverse Reactions: Allergies Allergy/AdvReac Type Severity Reaction Status Date / Time omeprazole Allergy Severe RASH Verified 06/28/17 10:08 Results - Vital Signs Recent Vital Signs: Last Vital Signs Temp 97.3 F L 07/12/17 20:00 Pulse 77 07/12/17 20:00 Resp 18 07/12/17 20:00 BP 112/75 07/12/17 20:00 Pulse Ox 100 07/12/17 20:00 - Labs Result Diagrams: 07/12/17 16:31 07/12/17 16:31 Labs: Laboratory Results - last 24 hr 07/12/17 07/12/17 07/12/17 16:31 16:31 16:31 WBC 13.6 H RBC 5.03 Hgb 13.7 Hct 41.7 MCV 83.0 MCH 27.3 MCHC 32.9 L RDW 12.4 Plt Count 293 MPV 9.0 Neut % (Auto) 76.4 H Lymph % (Auto) 11.3 L [place] % (Auto) 6.6 Eos % (Auto) 4.8 H Baso % (Auto) 0.9 Neut # 10.4 H Lymph # 1.5 [place] # 0.9 H Eos # 0.6 Baso # 0.1 PT INR APTT Sodium 135 Potassium 3.7 Chloride 98 Carbon Dioxide 26 Anion Gap 15 BUN 9 Creatinine 0.5 L Est GFR ( Amer) > 60 Est GFR (Non-Af Amer) > 60 Random Glucose 78 Calcium 8.8 Total Bilirubin 1.0 AST 18 ALT 25 Alkaline Phosphatase 102 Total Protein 7.9 Albumin 4.6 Globulin 3.3 Albumin/Globulin Ratio 1.4 Urine Color Yellow Urine Clarity Hazy Urine pH 5.0 Ur Specific [place] 1.026 Urine Protein Negative Urine Glucose (UA) Normal Urine Ketones Negative Urine Blood Negative Urine Nitrate Negative Urine Bilirubin Negative Urine Urobilinogen Normal Ur Leukocyte Esterase Neg Urine WBC (Auto) 3 Urine RBC (Auto) 2 Ur Squamous Epith Cells 18 H Urine Bacteria Few H 07/12/17 16:31 WBC RBC Hgb Hct MCV MCH MCHC RDW Plt Count MPV Neut % (Auto) Lymph % (Auto) [place] % (Auto) Eos % (Auto) Baso % (Auto) Neut # Lymph # [place] # Eos # Baso # PT 12.3 H INR 1.1 APTT 33 Sodium Potassium Chloride Carbon Dioxide Anion Gap BUN Creatinine Est GFR ( Amer) Est GFR (Non-Af Amer) Random Glucose Calcium Total Bilirubin AST ALT Alkaline Phosphatase Total Protein Albumin Globulin Albumin/Globulin Ratio Urine Color Urine Clarity Urine pH Ur Specific [place] Urine Protein Urine Glucose (UA) Urine Ketones Urine Blood Urine Nitrate Urine Bilirubin Urine Urobilinogen Ur Leukocyte Esterase Urine WBC (Auto) Urine RBC (Auto) Ur Squamous Epith Cells Urine Bacteria Assessment & Plan (1) Chronic ulcer of leg Assessment and Plan: for debribement Status: Acute (2) Stasis leg ulcer Status: Acute
[2017-07-13] MEDS: ceFAZolin IV 1 gm in Dextrose 1 GM/50 ML BAG IVPB SCH ×3 (01:39→17:26)
[2017-07-13 01:52] VITALS: RESP 20
--- NOTE | 2017-07-13 02:26 | OP ---
PROCEDURE DATE: 07/12/2017 PREOPERATIVE DIAGNOSES: Recurrent abscess and cellulitis of the ankle. POSTOPERATIVE DIAGNOSES: Recurrent abscess and cellulitis of the ankle. PROCEDURE PERFORMED: 1. Re-drainage of deep ankle abscess (91295). 2. Repair of perforating blood vessel of left ankle (85921). 3. Advancement flap closure greater than 20 sq cm (69705). SURGEON: Frank Kinsey MD ANESTHESIA: General. BLOOD LOSS: 30 mL. POSTOPERATIVE CONDITION: Stable. INDICATIONS FOR SURGERY: This is a 37-year-old female with chronic skin condition and recurrent abscesses of her ankle. She is status post multiple debridements recently, underwent Dermagraft placement of the ankle. She was seen in the office, recently and was found to have a recurrence of her ankle abscess along with skin changes consistent with recurrent cellulitis. She is now readmitted back to the hospital, taken to the OR for debridement and drainage. PROCEDURE: The patient taken to the operating room, general anesthesia was administered and the left ankle was prepped and draped. The skin overlying the medial aspect of the fluctuant area was completely excised and sent as a skin biopsy. The underlying abscess was drained and cultures. Bleeding was controlled using the Bovie. A perforating vein blood vessel was noted to be bleeding. It was mobilized controlled and repaired using 6-0 Prolene. The wound was then pulse irrigated with saline and Kantrex solution. A partial tissue transfer closure of 22 sq cm was performed at the periphery by widely mobilizing and using an advancement flap closure with heavy Monocryl and subcuticular Monocryl. Central portion of the large wound was packed open with wet saline gauze. The patient tolerated the procedure well, returned to recovery room in stable condition. Frank Kinsey MD
[2017-07-13] MEDS: Lactated Ringer's 1,000 ML IV SCH ×2 (04:30→05:58)
[2017-07-13 07:44] VITALS: O2SAT 100
[2017-07-13] MEDS ORDERED: Enoxaparin 40 mg Syringe SC SCH (10:00)
[2017-07-13] MEDS ORDERED: Lactated Ringer's 1,000 ML IV ONE ×2 (14:34)
[2017-07-13] MEDS ORDERED: Propofol 10 mg/ml Inj (20 ML) ONE (15:19)
[2017-07-13] MEDS ORDERED: Midazolam 2 MG/2 ML VIAL ONE (15:19)
[2017-07-13] MEDS ORDERED: HYDROmorphone 0.5 mg/0.5 ml ISec IVP PRN (15:58)
[2017-07-13 17:17] VITALS: BP 111/72; PULSE 73; TEMP 97.3
--- NOTE | 2017-07-13 17:45 | OP ---
PROCEDURE DATE: 07/13/2017 PREOPERATIVE DIAGNOSIS: Chronic infection and abscess of the left ankle. POSTOPERATIVE DIAGNOSIS: Chronic infection and abscess of the left ankle. PROCEDURE PERFORMED: 1. Debridement of skin, subcutaneous tissue and muscle (07545). 2. Repair of perforating vein blood vessel (64014). 3. Adjacent tissue transfer closure of 22 sq cm (30624) SURGEON: Dr. Frank Kinsey MD ANESTHESIA: General. ESTIMATED BLOOD LOSS: 40 mL. POSTOPERATIVE CONDITION: Stable. INDICATIONS FOR SURGERY: This is a 37-year-old female with a chronically infected left ankle wound, taken back to the operating room today for change of packing under anesthesia, debridement and possible closure. DESCRIPTION OF PROCEDURE: The patient was taken to the operating room, general anesthesia was administered and the left ankle was prepped and draped. The open wound was aggressively debrided of skin subcutaneous tissue and muscle leaving a nice healthy granulating bed. A perforating vein blood vessel was again found to be bleeding and was mobilized and repaired using Prolene. The wound was then pulse irrigated with the saline and Kantrex solution. Tissue flaps were raised within the wound and an advancement flap closure of 22 sq cm was performed. A small open area of the wound was dressed with Xeroform. The patient tolerated the procedure well and returned to recovery in stable condition. Frank Kinsey MD
--- NOTE | 2017-07-13 23:17 | CP.PCM.DIS ---
Provider - Provider Date of Admission: 07/12/17 18:08 Attending physician: Frank Kinsey MD Time Spent in preparation of Discharge (in minutes): 36 Hospital Course - Lab Results Lab Results: Most Recent Lab Values WBC 13.6 K/uL (4.8-10.8) H 07/12/17 16:31 RBC 5.03 Mil/uL (3.80-5.20) 07/12/17 16:31 Hgb 13.7 g/dL (11.0-16.0) 07/12/17 16:31 Hct 41.7 % (34.0-47.0) 07/12/17 16:31 MCV 83.0 fL (81.0-99.0) 07/12/17 16:31 MCH 27.3 pg (27.0-31.0) 07/12/17 16:31 MCHC 32.9 g/dL (33.0-37.0) L 07/12/17 16:31 RDW 12.4 % (11.5-14.5) 07/12/17 16:31 Plt Count 293 K/uL (130-400) 07/12/17 16:31 MPV 9.0 fL (7.2-11.7) 07/12/17 16:31 Neut % (Auto) 76.4 % (50.0-75.0) H 07/12/17 16:31 Lymph % (Auto) 11.3 % (20.0-40.0) L 07/12/17 16:31 [place] % (Auto) 6.6 % (0.0-10.0) 07/12/17 16:31 Eos % (Auto) 4.8 % (0.0-4.0) H 07/12/17 16:31 Baso % (Auto) 0.9 % (0.0-2.0) 07/12/17 16:31 Neut # 10.4 K/uL (1.8-7.0) H 07/12/17 16:31 Lymph # 1.5 K/uL (1.0-4.3) 07/12/17 16:31 [place] # 0.9 K/uL (0.0-0.8) H 07/12/17 16:31 Eos # 0.6 K/uL (0.0-0.7) 07/12/17 16:31 Baso # 0.1 K/uL (0.0-0.2) 07/12/17 16:31 PT 12.3 SECONDS (9.7-12.2) H 07/12/17 16:31 INR 1.1 07/12/17 16:31 APTT 33 SECONDS (21-34) 07/12/17 16:31 Sodium 135 mmol/L (132-148) 07/12/17 16:31 Potassium 3.7 mmol/L (3.6-5.2) 07/12/17 16:31 Chloride 98 mmol/L (98-107) 07/12/17 16:31 Carbon Dioxide 26 mmol/L (22-30) 07/12/17 16:31 Anion Gap 15 (10-20) 07/12/17 16:31 BUN 9 mg/dL (7-17) 07/12/17 16:31 Creatinine 0.5 mg/dL (0.7-1.2) L 07/12/17 16:31 Est GFR ( Amer) > 60 07/12/17 16:31 Est GFR (Non-Af Amer) > 60 07/12/17 16:31 Random Glucose 78 mg/dL (65-105) 07/12/17 16:31 Calcium 8.8 mg/dl (8.6-10.4) 07/12/17 16:31 Total Bilirubin 1.0 mg/dL (0.2-1.3) 07/12/17 16:31 AST 18 U/L (14-36) 07/12/17 16:31 ALT 25 U/L (9-52) 07/12/17 16:31 Alkaline Phosphatase 102 U/L (38-126) 07/12/17 16:31 Total Protein 7.9 g/dL (6.3-8.3) 07/12/17 16:31 Albumin 4.6 g/dL (3.5-5.0) 07/12/17 16:31 Globulin 3.3 gm/dL (2.2-3.9) 07/12/17 16:31 Albumin/Globulin Ratio 1.4 (1.0-2.1) 07/12/17 16:31 Urine Color Yellow (YELLOW) 07/12/17 16:31 Urine Clarity Hazy (Clear) 07/12/17 16:31 Urine pH 5.0 (5.0-8.0) 07/12/17 16:31 Ur Specific [place] 1.026 (1.003-1.030) 07/12/17 16:31 Urine Protein Negative mg/dL (NEGATIVE) 07/12/17 16:31 Urine Glucose (UA) Normal mg/dL (Normal) 07/12/17 16:31 Urine Ketones Negative mg/dL (NEGATIVE) 07/12/17 16:31 Urine Blood Negative (NEGATIVE) 07/12/17 16:31 Urine Nitrate Negative (NEGATIVE) 07/12/17 16:31 Urine Bilirubin Negative (NEGATIVE) 07/12/17 16:31 Urine Urobilinogen Normal mg/dL (0.2-1.0) 07/12/17 16:31 Ur Leukocyte Esterase Neg Saeid/uL (Negative) 07/12/17 16:31 Urine WBC (Auto) 3 /hpf (0-5) 07/12/17 16:31 Urine RBC (Auto) 2 /hpf (0-3) 07/12/17 16:31 Ur Squamous Epith Cells 18 /hpf (0-5) H 07/12/17 16:31 Urine Bacteria Few (<OCC) H 07/12/17 16:31 Urine HCG, Qual Negative (NEGATIVE) 07/13/17 04:08 - Hospital Course Hospital Course: Pt seen and examined is stable for discharge will follow up out pateint s/p debribement of left leg wound Discharge Plan - Follow Up Plan Condition: FAIR Disposition: HOME/ ROUTINE Instructions: Cellulitis (DC), Debridement (DC), Abscess (GEN), Incision and Drainage (DC) Additional Instructions: remove dressing daily, shower, wash area with soap/water, place elocon ointmenthen then cover with xeroform and DSD. take po antibiotics daily Referrals: Frank Kinsey MD [Staff Provider] -
[2017-07-14] MEDS ORDERED: Pneumococcal 23-Valent Vaccine IM ONE (10:00)
[2017-07-14] MEDS ORDERED: Influenza Vaccine 60 mcg/0.5 mL SYR (4YR UP) IM ONE (10:00)
== END 2017-07-13 19:06 | disposition home or self-care (01) | DRG 575 ==
LOC: C.ER 14:24 → C.9S 18:08 → C.6T 19:54
PROVIDERS: ADMIT Surgery; ATTEND Surgery
PROC: 0HXNXZZ Transfer Left Foot Skin, External Approach (ICD-10-PCS; 2017-07-12)
PROC: 06Q Lower Veins, Repair (ICD-10-PCS; 2017-07-12)
PROC: 0H9NXZZ Drainage of Left Foot Skin, External Approach (ICD-10-PCS; principal; 2017-07-12 18:15)
PROC: 0KBW0ZZ Excision of Left Foot Muscle, Open Approach (ICD-10-PCS; 2017-07-13)
PROC: 0HXNXZZ Transfer Left Foot Skin, External Approach (ICD-10-PCS; 2017-07-13)
PROC: 06Q Lower Veins, Repair (ICD-10-PCS; 2017-07-13)
DX: L03.115 Cellulitis of right lower limb (principal); I87.2 Venous insufficiency (chronic) (peripheral)